=== PATIENT | male | born 1965 | race Caucasian/White ===

== ENCOUNTER 2018-10-29 12:05 | Emergency (ER) | payer OTHER, SELFPAY ==
[2018-10-29 12:06] VITALS: BP 155/85; PULSE 84; RESP 22; TEMP 36.4; O2SAT 97; BMI 36.1
--- NOTE | 2018-10-29 12:16 | RAD_ITS ---
STUDY: X-RAY CHEST REASON FOR EXAM: Male, 53 years old. Chest pain. TECHNIQUE: Single AP portable view of the chest. COMPARISON: None. FINDINGS: EKG electrodes are seen. Elevation of the right hemidiaphragm. There is no demonstrated pleural abnormality. Normal size heart. Normal mediastinum and jazlyn. Normal visualized pulmonary arteries. Normal visualized aortic arch and descending thoracic aorta. Normal visualized thoracic spine. Status post bilateral shoulder replacement. There is no demonstrated abnormality of the visualized soft tissue structures of the upper abdomen. RAD/Chest 1 View (Portable) IMPRESSION: No acute abnormality is seen. Electronically Signed: Timoteo Blue, at 12:44 EDT , Service support ,
--- NOTE | 2018-10-29 12:16 | EKG12_ITS ---
Test Reason : CP Blood Pressure : / mmHG Vent. Rate : 088 BPM Atrial Rate : 088 BPM P-R Int : 126 ms QRS Dur : 102 ms QT Int : 362 ms P-R-T Axes : 038 017 065 degrees QTc Int : 438 ms Normal sinus rhythm Normal ECG Confirmed by COURTNEY MENDOZA ([id number]), managing editor TYESHA MIRZA ([id number] on 11/04/2018 3:39:07 PM Referred By: [facility] Confirmed By:COURTNEY MENDOZA
[2018-10-29 12:21] VITALS: O2SAT 99
[2018-10-29 12:41] LABS: Absolute Lymphocyte Count 2.14 X10^3/ul (0.83-4.51); Absolute Neutrophil Count 9.3 X10^3/uL (2.0-7.7); Basophil# 0.01 X10^3/uL; Basophil% 0.1 % (0-1); Eosinophil# 0.12 X10^3/uL; Hemoglobin 15.9 g/dl (13.0-16.5); Lymphocyte # 2.14 X10^3/ul (4.0); Lymphocyte % 17.2 % (19-41); Mean Corp Hgb Conc 33.8 g/gl (32-36); Mean Corpuscular Volume 82.7 fL (80-94); Mean Platelet Vol. 9.2 fl (6.2-12.0); Monocyte# 0.83 X10^3/uL; Monocyte% 6.7 % (0-10); Neutrophil # 9.34 X10^3/uL (2.7-7.7); Neutrophil % 74.8 % (47-70); Platelet Count 337 K/mm3 (150-450); RBC Distribution Width SD 45.4 fl (35.1-43.9); Red Blood Count 5.68 M/mm3 (4.6-6.2); White Blood Count 12.5 K/mm3 (4.4-11.0)
[2018-10-29 12:42] LABS: POSITIVE COUNT NO; POSITIVE DIFFERENTIAL NO; POSITIVE MORPHOLOGY NO
[2018-10-29 12:46] LABS: International Normalized Ratio 1.1; Prothrombin Time (Protime)PT. 14.3 SECONDS (11.7-14.9)
[2018-10-29 12:52] LABS: Anion Gap 4 (5-15); BUN 16 mg/dL (7-18); BUN/Creat Ratio 16.6 RATIO (10-20); Calcium,Total 8.5 mg/dL (8.5-10.1); Chloride 108 mmol/L (98-107); Creatinine, Serum 0.96 mg/dL (0.70-1.30); EST Glomerular Filtration Rate 86 mL/min (>60); Est Glom Filt Rate - Afr Amer 105 mL/min (>60); Estimated Creatinine Clearance 87.97 ml/min; Glucose 125 mg/dL (74-106); Potassium 3.9 mmol/L (3.5-5.1); Sodium Level 140 mmol/L (136-145)
[2018-10-29 13:05] VITALS: BP 137/84; PULSE 78; RESP 16; O2SAT 100
[2018-10-29 14:00] VITALS: BP 141/87; PULSE 76; RESP 16; O2SAT 98
--- NOTE | 2018-10-29 14:35 | ED.VISSUMM ---
- ER Visit Summary Date of Service: 10/29/18 Chief Complaint: Chest pain History of Present Illness: The patient is a 53 M who presents with chest pain that off and on for the past 3 days. Patient states the pain began approximately 6 hours prior to arrival today. She describes it as tightness and squeezing with occasional stabbing pain. Patient states the pain is over the left parasternal area. Patient states nothing makes it better or worse. Patient admits to some shortness of breath. Patient also admits to a cough and subjective fever. Patient also admits to some lightheadedness. Patient denies any nausea, vomiting, or diarrhea. Patient denies any diaphoresis. Patient is a smoker. Patient denies any other cardiac risk factors. Patient denies any PE risk factors. Physical Examination: Vital signs are stable. Patient is afebrile. Patient is in no acute distress. Oral mucosa is pink and moist. Neck is supple. Trachea is midline. There is no JVD noted. Heart was regular rate and rhythm. Lungs are clear and equal bilateral. Abdomen is soft. Bowel sounds are normal. There is no tenderness. There is no guarding noted. Skin is warm dry. Cranial nerves II through XII are intact. There are no focal motor or sensory deficits noted. The remaining physical exam is within normal limits. Test Results: EKG showed normal sinus rhythm with a rate of 88. There are no acute ST or T wave changes noted. Chest x-ray does not show any acute cardiopulmonary process. CBC, basic metabolic profile, and troponin were obtained and were normal. Emergency Department Course and Treatment: Patient felt better on reevaluation. Patient is a GENEVIEVE risk score of 0. Patient has a HEART score of 3. Patient was advised that this is low risk for acute cardiac event. Patient was instructed to follow-up with his primary care physician in 5 to 7 days for further evaluation. Patient understood and was agreeable with the plan. All questions were answered. Disposition: Discharge home Impression: Chest pain This note was generated with [employer] dictation software. It may contain incorrect words, spelling, and punctuation that were not noted in review of the chart prior to signing ED Disposition - Plan for ED Patient: Disposition: Home or Assisted Living Diagnosis: Chest pain Instructions: ED Chest Pain Atypical Unkn Cause Referrals: Rufus Felix DO [Primary Care Provider] - 5-7 Days
[2018-10-29 15:01] VITALS: BP 141/87; PULSE 76; RESP 16; O2SAT 98
== END 2018-10-29 15:02 | disposition home or self-care (01) ==
PROVIDERS: Emergency Provider Emergency Medicine; Family Provider Student in an Organized Health Care Education/Training Program; PCP Student in an Organized Health Care Education/Training Program
DX: R07.9 Chest pain, unspecified (principal); R50.9 Fever, unspecified; R05 Cough; R06.02 Shortness of breath; E66.9 Obesity, unspecified; F17.200 Nicotine dependence, unspecified, uncomplicated; Z79.899 Other long term (current) drug therapy; Z96.612 Presence of left artificial shoulder joint; Z96.611 Presence of right artificial shoulder joint
CPT/HCPCS: 71045; 80048; 84484; 85025; 85610; 93005; 99284; A4216